=== PATIENT | male | born 1990 | race Caucasian/White ===

== ENCOUNTER 2018-08-06 20:24 | Emergency (ER) | payer OTHER ==
[~2018-08-06] VITALS: Ht 180.3 cm; Wt 125.2 kg
[2018-08-06 20:33] VITALS: BP 133/91
[2018-08-06] MEDS ORDERED: 0.9 % SOD CHL for STERILE FIELD 10 ML DISP.SYRIN. ONE (20:47)
[2018-08-06] MEDS ORDERED: FLUORESCEIN OPHTH TEST STRIP. ONE (20:48)
[2018-08-06] MEDS ORDERED: FLUORESCEIN OPHTH TEST STRIP. OD ONE (20:50)
[2018-08-06] MEDS ORDERED: ERYTHROMYCIN 0.5% OPHTH OINTMENT 1GM TUBE. OD SCH (21:00)
--- NOTE | 2018-08-06 21:03 | PHYS DOC ---
Past Medical History Past Medical History: High Cholesterol, Hypertension Past Surgical History: Other Additional Past Surgical Histo: UETER SURGERY Alcohol Use: Occasionally Drug Use: None Adult General Chief Complaint Chief Complaint: EYE PROBLEMS [facility] Patient is a 28-year-old male who presents with complaint of right eye pain that started earlier this afternoon. [place] felt something in his eye suddenly. He thought that maybe it was just an eyelash and when he looked in his eye, he did see an eyelash around where his lower eyelid been. He states that he was able to remove the eyelash but shortly thereafter, he felt like he had another eyelash or foreign body in his eye. Patient was seen over at urgent care and had slit lamp evaluation and was told that he had a small spot in his eye and that he needed to see an tearer press clipping. Patient denies having had any change was vision. He does report to some mild pain at this time. Review of Systems Review of Systems Constitutional: Denies fever or chills [] Eyes: Denies change in visual acuity. Complains of right eye pain and swelling to the right upper eyelid [] Respiratory: Denies cough or shortness of breath [] Cardiovascular: No additional information not addressed in HPI [] Current Medications Current Medications Current Medications Medications (Trade) Dose Ordered Sig/Leticia Start Time Stop Time Status Last Admin Dose Admin Fluorescein Sodium (Ful-Neha) 1 strip 1X ONCE 08/06/18 20:50 08/06/18 20:53 DC 08/06/18 20:53 1 STRIP Allergies Allergies Allergies Coded Allergies Type Severity Reaction Last Updated Verified No Known Drug Allergies 08/06/18 No Physical Exam Physical Exam Constitutional: Well developed, well nourished, no acute distress, non-toxic appearance. [] Eyes: PERRLA, EOMI. right eye examined with floor seen and blacklight, demonstrating very small abrasion to the sclera at 7:30 position [] Neck: Normal range of motion, no tenderness, supple, no stridor. [] Cardiovascular:Heart rate regular rhythm, no murmur [] Lungs & Thorax: Bilateral breath sounds clear to auscultation [] Current Patient Data Vital Signs Vital Signs Date Time Temp Pulse Resp B/P (MAP) Pulse Ox O2 Delivery O2 Flow Rate FiO2 08/06/18 20:33 98.3 93 16 133/91 (105) 97 Room Air 98.3 EKG EKG [] Radiology/Procedures Radiology/Procedures [] Course & Med Decision Making Course & Med Decision Making Pertinent Labs and Imaging studies reviewed. (See chart for details) [] Dragon Disclaimer Dragon Disclaimer This electronic medical record was generated, in whole or in part, using a voice recognition dictation system. Departure Departure Impression: Primary Impression: Abrasion of sclera of right eye Disposition: HOME, SELF-CARE Condition: STABLE Patient Instructions: Eye - Corneal Abrasion Additional Instructions: Use erythromycin ophthalmic ointment 3 times a day for 7 days. Follow-up with tearer press clipping if symptoms worsen to include change in visual acuity, increase in pain, swelling or significant photophobia. Problem Qualifiers Primary Impression: Abrasion of sclera of right eye Encounter type: initial encounter Qualified Codes: S05.8X1A - Other injuries of right eye and orbit, initial encounter GRACE KEYES Jr., DO Aug 06, 2018 21:03
== END 2018-08-06 21:24 | disposition home or self-care (01) ==
LOC: ER 20:24
DX: S05.8X1A Other injuries of right eye and orbit, initial encounter (principal); I10 Essential (primary) hypertension; E78.00 Pure hypercholesterolemia, unspecified; X58.XXXA Exposure to other specified factors, initial encounter; Y93.89 Activity, other specified; Y92.89 Other specified places as the place of occurrence of the external cause; Y99.8 Other external cause status
CPT/HCPCS: 99283